=== PATIENT | female | born 1950 | race Caucasian/White ===

== ENCOUNTER → 2016-10-29 | Outpatient (CLI) | payer OTHER ==
[2016-10-29 14:26] LABS: HEMOGLOBIN A1C 10.98 % (4.2-6.0); MEAN BLOOD GLUCOSE (CALC) 279.634 mg/dL
== END ==
LOC: MOB LAB 11:22
DX: E11.9 Type 2 diabetes mellitus without complications (principal); Z79.4 Long term (current) use of insulin; E55.9 Vitamin D deficiency, unspecified; F32.9 Major depressive disorder, single episode, unspecified
CPT/HCPCS: 36415; 82306; 83036; 84443

== ENCOUNTER → 2016-12-29 | Outpatient (CLI) | payer OTHER ==
[2016-12-29 12:33] LABS: BASOPHILS # (AUTO) 0.05 10*3/UL; BASOPHILS % (AUTO) 0.6 % (0-1); EOSINOPHILS # (AUTO) 0.22 10*3/UL; EOSINOPHILS % (AUTO) 2.9 % (0-8); HEMATOCRIT 37.4 % (37.0-47.0); HEMOGLOBIN 12.5 g/dL (12.0-16.0); MEAN CORPUSCULAR HEMOGLOBIN 30.6 PG (27-31); MEAN CORPUSCULAR HGB CONC 33.4 g/dL (33-37); MEAN CORPUSCULAR VOLUME 91.4 FL (81-99); MEAN PLATELET VOLUME 9.9 FL (7.4-12.2); MONOCYTES % (AUTO) 6.5 % (5-15); NEUTROPHILS # (AUTO) 5.04 10*3/UL; NEUTROPHILS % (AUTO) 65.4 % (50-80); RED BLOOD COUNT 4.09 10^6/uL (4.20-5.40)
[2016-12-29 12:36] LABS: BLOOD UREA NITROGEN 22 mg/dL (7-22); CALCIUM 9.6 mg/dL (8.7-10.7); EST GLOMERULAR FILTRATION > 60 (>60 ml/min/1.73m(2)); SERUM ALBUMIN 4.1 g/dL (3.5-4.8)
[2016-12-29 12:43] LABS: CHOL/HDL RATIO 1.96 RATIO (0-4.0)
[2016-12-29 12:46] LABS: PLATELET MORPHOLOGY COMMENT NORMAL MORPHOLOGY (NORM); RBC MORPHOLOGY COMMENT NORMAL MORPHOLOGY (NORM); WBC MORPHOLOGY COMMENT NORMAL MORPHOLOGY (NORM)
[2016-12-29 13:52] LABS: ERYTHROCYTE SEDIMENTATION RATE 16 MM/HR (0-20)
== END ==
LOC: LAB 12:14
DX: E11.9 Type 2 diabetes mellitus without complications (principal); Z79.4 Long term (current) use of insulin; R20.0 Anesthesia of skin; R47.81 Slurred speech; E78.5 Hyperlipidemia, unspecified
CPT/HCPCS: 36415; 80053; 80061; 85025; 85652

== ENCOUNTER → 2017-01-04 | Outpatient (CLI) | payer OTHER ==
--- NOTE | 2017-01-04 09:19 | DI ---
MRI BRAIN SCAN WITHOUT CONTRAST, 01/04/2017 8:36 AM: Clinical History: Left arm numbness. Previous Exam: None at this facility. Sequences: Sagittal T1; Axial DINORAH T2 and FLAIR. Axial diffusion weighted images with ADC mapping were also performed. The 4th, 3rd, and lateral ventricles are of normal size, shape, position, and contour for this patien t's age. There are no focal areas of abnormally increased or decreased signal intensity. Diffusion we ighted imaging with ADC mapping is normal. There is mild cerebral atrophy. There are no extracerebral mantels or shift of the midline structures. The paranasal sinuses are normal. Readin. Normal noncontrast MRI brain scan. 2. Mild cerebral atrophy. 3. Diffusion weighted imaging with ADC mapping is normal.
--- NOTE | 2017-01-04 10:13 | DI ---
DUPLEX COLOR DOPPLER CAROTID ULTRASOUND, 01/04/2017 8:36 AM: Clinical History: Left arm numbness. Previous Exam: None at this facility. Technique: 2D real time imaging is supplemented with duplex color doppler ultrasound imaging. RIGHT CAROTID ARTERY: 2D real time imaging of the right carotid system shows tortuosity of a normal-appearing common caroti d artery and this tortuosity typically is associated with chronic hypertension. There is a very small calcified plaque in the posterior carotid bulb. The right internal and external carotid arteries are normal. Peak systolic velocities through the right common carotid, the external carotid, and the int ernal carotid are 90 cm/s, 110 cm/s, and 67 cm/s, respectively. All values correspond to diameter makenzie noses of 0-49%. LEFT CAROTID ARTERY: 2D real time imaging of the left carotid system shows similar tortuosity of the normal-appearing left common carotid artery. Small noncalcified plaques are present in the carotid bulb in the proximal po rtion of the external carotid artery. Peak systolic velocities through the left common carotid, the e xternal carotid, and the internal carotid are 99 cm/s, 95 cm/s, and 66 cm/s, respectively. All values correspond to diameter stenoses of 0-49%. VERTEBRAL ARTERIES: There is antegrade flow through both vertebral arteries Cardiac rhythm is regular. Peak systolic [place] through the visualized portions of the right and left vertebral arteries are 39 cm/s and 32 cm /s, respectively. Both values correspond to diameter stenoses of 0-49%. Readin. There is no hemodynamically significant stenosis of either carotid system. 2. There is antegrade flow through both vertebral arteries with a regular cardiac rhythm.
== END ==
LOC: MRI 08:30
DX: R20.0 Anesthesia of skin (principal); G31.89 Other specified degenerative diseases of nervous system
CPT/HCPCS: 70551; 93880

== ENCOUNTER → 2017-01-22 | Outpatient (CLI) | payer OTHER | LOC: MMPC 11:11 | DX: S30.1XXA Contusion of abdominal wall, initial encounter (principal); E11.9 Type 2 diabetes mellitus without complications; K21.9 Gastro-esophageal reflux disease without esophagitis; E78.5 Hyperlipidemia, unspecified; F32.9 Major depressive disorder, single episode, unspecified; G47.30 Sleep apnea, unspecified; W19.XXXA Unspecified fall, initial encounter | CPT/HCPCS: 99213 ==

== ENCOUNTER 2017-02-20 14:08 | Emergency (ER) | payer OTHER ==
[2017-02-20 14:41] VITALS: RESP 18; TEMP 98.9
--- NOTE | 2017-02-20 15:13 | DI ---
HISTORY: Knee pain and bruising after fall. TECHNIQUE: 3 images. FINDINGS: There are 2 screws noted along the upper tibia. There is degenerative change. There is e vidence of prior surgery from the distal femoral condyles through the tibial spine. There is narrowi ng of the tibiofemoral spaces. There is patellofemoral degeneration. IMPRESSION: 1. Post-surgical changes without acute of acute fracture nor apparent hardware abnormalities.
--- NOTE | 2017-02-20 15:15 | DI ---
HISTORY: Pain and bruising after fall. FINDINGS: There is no acute fracture or dislocation. Prior surgery noted to the upper tibial spine and proximal shaft. IMPRESSION: 1. Post-surgical changes without evidence of acute fracture or apparent hardware abnormalities.
--- NOTE | 2017-02-20 16:00 | DI ---
HISTORY: Right knee pain and bruising after fall. TECHNIQUE: Unenhanced images of the knee were obtained and submitted for interpretation. FINDINGS: There is a soft tissue hematoma overlying the lateral aspect of the distal femoral condyle . There is evidence of prior surgery. There is probably prior ACL repair. There are well corticated bony ossicles measuring approximately 5 mm adjacent to the tibial spine. T his could be postsurgical, or degenerative. No definite fractures identified. There is irregularity along the femoral condyles both on the medial and lateral aspect. There is als o bony irregularity along the upper tibia along the medial and lateral aspect. This is probably a co mbination of degeneration, with or without superimposed postsurgical change. No overt fractures identified. Bony defects are likely postsurgical. There is thickening, and edema along the lateral collateral ligament, that would benefit from further evaluation with MRI. There is a small patellar effusion, and thickening of the the patello-femoral, and patellotibial lig aments. IMPRESSION: 1. Post surgical change. 2. Well-corticated bony fragments adjacent to the tibial spine. 3. Osteophytosis with degenerative change. 4. The irregular lucency along the lateral tibia is favored to represent a combination degeneration, and postsurgical change. MRI recommended.
--- NOTE | 2017-02-21 07:30 | PDOC ---
Lower Extremity Injury HPI - General Chief Complaint: Lower Extremity Problem/Injury Stated Complaint: KNEE PAIN Date Seen by Provider: 02/20/17 Time Seen by Provider: 14:15 Source: POSITIVE: Patient Exam Limitations: POSITIVE: No limitations Nurse's Notes Reviewed & Considered: Yes - History of Present Illness Initial Comments: The patient is a 66-year-old female. 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 She stumbled down a step in the [employer] and fell onto the anterior aspect of her right knee. She complains of pain and ecchymosis and swelling over the anterior aspect of the right knee. She also has discomfort over proximal aspect of the back of the lower leg. She has been ambulating, but with discomfort. Incident occurred approximately one hour [employer] Have you received a tetanus shot in the past 10 years?: Yes Body Location Affected: REPORTS: Lower Extremity (R) Timing: REPORTS: Abrupt Duration: 1 hour Severity: Moderate Quality: REPORTS: "Pain" Location at Time of Onset: REPORTS: Other ([facility]) Context of Injury: REPORTS: Fall, Direct Blow Location of Injury: REPORTS: Knee (R), Leg (R) Modifying Factors: improves with: Walking, Movement, Other (Direct palpation) Associated Symptoms: DENIES: Unable to Bear Weight, Snapping, Popping Sensation , Became Dizzy, Fainted, Seizure, Other Any Prior Injuries Related to Current Complaint?: No - Patient Home Medications Home Medications: Home Medications Ascorbic Acid [Vitamin C] 500 mg PO DAILY #30 09/11/11 Calcium Carbonate/Vitamin D3 [Caltrate 600 W-D Tablet] 1 each PO DAILY #30 12/08 [place]-3 Fatty Acids/Fish Oil [Fish Oil Concentrate Softgel] 1 each PO DAILY #30 09/11/11 Aspirin 325 mg PO DAILY tab 07/18/13 Cholecalciferol (Vitamin D3) [Vitamin D3] 1 tab PO QD #30 tab 08/09/14 Blood Sugar Diagnostic [Glucose Test Strip] 1 each IN 3-4XD PRN #150 strip 05/08 Blood Sugar Diagnostic [Truetest Test Strips] 1 each IN BID PRN #75 strip Omeprazole 1 cap PO QD #30 cap 11/25/15 Epinephrine 0.3 mg IM QD PRN #2 unit 01/06/16 Escitalopram Oxalate 1 tab PO DAILY #90 tab 05/20/16 Atorvastatin Calcium [Lipitor] 1 tab PO QHS #90 tab 08/18/16 Insulin Glargine,Hum.rec.anlog [Bhumika Garcia] 35 unit SUBCUT QHS #5 unit 10/13 - Patient Allergies Allergies/Adverse Reactions: Allergies Allergy/AdvReac Type Severity Reaction Status Date / Time BEES AdvReac Intermediate ITCHING Uncoded 02/20/17 14:17 Past Medical History - heen HEENT History: Dentures/Partials Additional HEENT History: PERMANENT PARTIAL Cardiovascular History: Hyperlipidemia Respiratory History: Sleep Apnea, Home CPAP Use, Snoring Gastrointestinal History: GERD, Gallbladder Disease Additional Gastrointestinal History: CHANGE IN VOICE Genitourinary History: Incontinence Endocrine History: Type 2 Diabetes (oral) Musculoskeletal History: Denies History Prosthesis or Implant: No Additional Musculoskeletal History: 02/26/15 PT IN TO URGENT CARE FOR ABCESS ON RIGHT BUTTOCKS. STARTED ON KEFLEX. CULTURE RESULTS PENDING. CLEARED UP 10/23/15 Neurological History: Denies History Blood Disorders: Denies History Psychiatric History: Depression History of Sexually Transmitted Diseases: No Cancer History: Denies History In Past Year Been Physically Harmed or Verbally Threatened: No History of MDRO: No History of Other Communicable Diseases: No Tobacco Use: Former Smoker Alcohol Use: Occasionally Substance Use Type: None Previous Surgical History: Yes Type / Date of Surgery: LEFT RING FINGER TRIGGER RELEASE/ MELLO WITH BSO/ COLONOSCOPY/ EGD/ RIGHT KNEE SCOPE X 2/ RIGHT ACL/ URODYNAMICS TESTING/ TVT Anesthesia Reactions: Yes (PONV) Malignant Hyperthermia: No Significant Family History: Heart disease, Cancer, Diabetes Past Medical History Reviewed: Reviewed - No Changes ROS - Limitations ROS Limitations: No Limitations Constitution: REPORTS: Denies Symptoms Cardiovascular: REPORTS: Denies Cardiac Symptoms Respiratory: REPORTS: Denies Resp Symptoms Neurological: REPORTS: Denies Neuro Symptoms Gastrointestinal: REPORTS: Denies GI Symptoms Endocrine: REPORTS: Denies Symptoms Musculoskeletal: REPORTS: Joint Pain (Right knee) Genitourinary: REPORTS: Denies Symptoms Eyes: REPORTS: Denies Symptoms ENT: REPORTS: Denies Symptoms Skin: REPORTS: Other (Ecchymosis right knee anteriorly) Lympathic: REPORTS: Denies Lympathic Symptoms Immunologic: POSITIVE: Denies Symptoms Psychiatric: POSITIVE: Denies Psych Symptoms Lower Ext Complaint Exam - General Appearance General Appearance: POSITIVE: Alert, Cooperative, No Acute Distress. NEGATIVE: No Evidence of Trauma - Extremities Lower Extremity: POSITIVE: Normal Temperature, Skin Intact, No Joint Swelling, No Evidence of Ischemia, Stable, Soft Tissue Tenderness, Bony Tenderness, Swelling, Ecchymosis, See Diagram. NEGATIVE: Erythema, Deformity, Pulse Deficit , Limited ROM, Laxity of Ligaments, Joint Effusion, Hip Pain on Leg Movement Lower Extremity Ligament: NEGATIVE: Pain on Anterior Drawer, Pain on Posterior Drawer, Laxity on Anterior Drawer, Laxity w/Posterior Drawer, Pain on Medial Stress, Pain on Lateral Stress, Laxity on Medial Stress, Laxity on Lateral Stress, Other Gait: POSITIVE: Antalgic Gait Neurovascular/Tendon: POSITIVE: Sensation Normal, Motor Normal, No Vascular Compromise Skin: POSITIVE: Ecchymosis - Neck / Back Neck/Back: POSITIVE: Normal Inspection, Non-Tender, Painless ROM - Respiratory / CVS Respiratory / CVS: POSITIVE: Chest Non Tender, No Ecchymosis, Breath Sounds Normal, No Respiratory Distress, Heart Sounds Normal, Regular Rate/Rhythm Peripheral Pulses: Radial (R): 2+, Radial (L): 2+ - Abdomen Abdomen: Soft: (All Quadrants), Normal Bowel Sounds: (All Quadrants), Denies Tenderness: (All Quadrants), No Splenomegaly: (All Quadrants), No Hepatomegaly: (All Quadrants), No Guarding: (All Quadrants), No Rebound: (All Quadrants), No Palpable Pulse: (All Quadrants), No Palpabale Mass: (All Quadrants), No Distention: (All Quadrants), No Rigidity: (All Quadrants) Images - Lower Extremities Lower Extremities: 1 - Ecchymosis and discomfort/pain on palpation 2 - Discomfort on palpation Lower Ext Complaint Progress - Results Reviewed by me Xrays/CTs/US Reviewed by me: Yes Discussed with Radiologist: No Radiology Findings: X-ray right knee shows some possible cortical irregularity over lateral condyle. X-ray right tibia-fibula normal. CT scan of the knee shows no fracture. Patient is status post anterior cruciate ligament repair - Patient's Progress Pain Medication Addressed: POSITIVE: Yes (Recommended Advil or Tylenol) School/Work Release Addressed: POSITIVE: Yes (No weight bearing until further evaluated by primary care provider or orthopedist) Re-Examine Time:: 16:30 Re-Examine Comment: Kirk wrap applied and patient instructed in crutch use. Status: POSITIVE: Unchanged, Re-Examined - Consult Counseled: POSITIVE: Patient, Family (), RE: Radiology Results, RE: DX, RE: Need for F/U Patient Care Time - Estimated PCT Patient Care Time (In Minutes): 35 Vital Signs - VS Reviewed Vital Signs Reviewed: Yes Discharge Clinical Impression: Contusion, Knee sprain Discharge Disposition: Discharged to Home Condition: Stable Patient Instructions Given at Discharge: Knee Sprain (ED), Contusion in Adults (ED) Additional Instructions: The x-ray and CT scan of your knee and lower leg shows no definite fractures. You do have a prominent contusion, or bruise, to your knee and lower leg. You may also have a sprain of what is known as the lateral collateral ligament of the knee. Please wear Kirk wrap. Use crutches and bear no weight on the injured leg. Do this for for 5 days. Follow-up with your primary care provider or orthopedist in for 5 days for reevaluation. Return here anytime if condition worsens. Tylenol or Advil for discomfort. Cool compresses to knee today. Follow Up With: RICK YA [Primary Care Provider] - (Instructions as above. Follow-up with your primary care provider or orthopedist in for 5 days. Return here anytime if condition worsens in any way.)
== END 2017-02-20 16:18 | disposition home or self-care (01) ==
LOC: ER 14:08
DX: S83.91XA Sprain of unspecified site of right knee, initial encounter (principal); S80.01XA Contusion of right knee, initial encounter; E78.5 Hyperlipidemia, unspecified; E11.9 Type 2 diabetes mellitus without complications; W10.8XXA Fall (on) (from) other stairs and steps, initial encounter; Y92.22 Religious institution as the place of occurrence of the external cause
CPT/HCPCS: 73562; 73590; 73700; 99283

== ENCOUNTER → 2017-03-01 | Outpatient (CLI) | payer OTHER | LOC: MMPC 10:00 | PROVIDERS: ATTEND Orthopaedic Surgery | DX: S80.01XD Contusion of right knee, subsequent encounter (principal); M17.11 Unilateral primary osteoarthritis, right knee; W10.8XXD Fall (on) (from) other stairs and steps, subsequent encounter | CPT/HCPCS: 99213; G0463 ==

== ENCOUNTER → 2017-03-22 | Outpatient (CLI) | payer OTHER | LOC: MMPC 10:00 | PROVIDERS: ATTEND Orthopaedic Surgery | DX: S80.01XD Contusion of right knee, subsequent encounter (principal) | CPT/HCPCS: 99213; G0463 ==

== ENCOUNTER → 2017-05-06 | Outpatient (CLI) | payer OTHER ==
[2017-05-06 17:33] LABS: BILIRUBIN,URINE NEGATIVE (NEG); CLARITY,URINE CLEAR (CLEAR); COLOR,URINE YELLOW; GLUCOSE, URINE (UA) 100 mg/dL (NEG); NITRATE,URINE NEGATIVE (NEG); OCCULT BLOOD,URINE NEGATIVE (NEG); PH,URINE 5.5 (5.0-8.5); PROTEIN,URINE NEGATIVE (NEG); UROBILINOGEN,URINE 0.2 mg/dL (0.2)
[2017-05-06 17:51] LABS: HEMOGLOBIN A1C 9.85 % (4.2-6.0)
[2017-05-06 17:52] LABS: CREATININE, URINE 145.9 MG/DL (15-500)
[2017-05-06 17:56] LABS: SQUAMOUS EPITHELIAL CELL,UR FEW; URINE SAMPLE TYPE VOIDED SPECIMEN; WBC,URINE 0-2
== END ==
LOC: MOB LAB 16:16
DX: E11.9 Type 2 diabetes mellitus without complications (principal); Z79.4 Long term (current) use of insulin; K21.9 Gastro-esophageal reflux disease without esophagitis; E78.5 Hyperlipidemia, unspecified; N39.41 Urge incontinence; G47.30 Sleep apnea, unspecified; W19.XXXD Unspecified fall, subsequent encounter
CPT/HCPCS: 36415; 81001; 82043; 83036